=== PATIENT | male | born 1990 | race Caucasian/White ===

== ENCOUNTER 2021-09-26 18:20 | Emergency (ER) | payer SELFPAY ==
[~2021-09-26] VITALS: Ht 72 cm; Wt 99.8 kg
--- NOTE | 2021-09-26 19:44 | Diagnostic Imaging Report ---
EXAMINATION: Left fingers 2 or more views. HISTORY: Left thumb laceration. COMPARISON: None available. FINDINGS: Alignment is normal. No fracture is seen. No radiopaque foreign body is present. Joint spaces are normal. IMPRESSION: No fracture or radiopaque foreign body. Dictated by: Dictated on workstation # [id number]
--- NOTE | 2021-09-26 19:53 | ED Upper Extremity ---
General Chief Complaint: Laceration Stated Complaint: LEFT THUMB LAC Nursing Triage Note: Pt arrives via POV from home with c/o left thumb laceration; onset one hour ago. Pt reports cutting his thumb on a new band saw blade. Pt reports last tetanus <1 year ago. Source: patient Exam Limitations: no limitations History of Present Illness Date Seen by Provider: Sep 26, 2021 Time Seen by Provider: 19:29 Initial Comments Is a well-appearing 31-year-old male who presented to the ER with complaints of laceration to his left thumb that occurred approximate 1 hour prior to arrival. States that he was using his new band saw when he accidentally slipped and cut his finger. His last tetanus was updated a year ago. Physical Exam Vital Signs Vital Signs - First Documented 09/26/21 19:16 Resp 18 Pulse Ox 98 O2 Delivery Room Air Capillary Refill : Height, Weight, BMI Height: '" Weight: lbs. oz. kg; 192.00 BMI Method: Progress/Results/Core Measures Results/Orders My Orders Orders - ANANTH PAULSON APRN Finger(S) (09/26/21 19:17) Vital Signs/I&O 09/26/21 19:16 Resp 18 B/P (MAP) Pulse Ox 98 O2 Delivery Room Air Departure Impression Primary Impression: Laceration of thumb Disposition: HOME, SELF-CARE Condition: Improved Departure-Patient Inst. Decision time for Depature: 19:44 Referrals: NO,LOCAL PHYSICIAN (PCP/Family) Primary Care Physician Patient Instructions: Laceration Repair Add. Discharge Instructions: Plan: 1. Wash daily with mild soap and water. Pat dry. Place yellow gauze over laceration and dry gauze. 2. Do not soak or swim with laceration. 3. Monitor for signs of infection: redness, drainage, swelling, fever. Return or follow up with your doctor for antibiotics if they develop. 4. Return for any new, concerning, or worsening symptoms. All discharge instructions reviewed with patient and/or family. Voiced understanding. ANANTH PAULSON APRN Sep 26, 2021 19:53
[2021-09-26 20:11] VITALS: BP 131/89
== END 2021-09-26 20:13 | disposition home or self-care (01) ==
LOC: EDUNIT# 18:20 → ER 18:24
DX: S61.012A Laceration without foreign body of left thumb without damage to nail, initial encounter (principal); W26.8XXA Contact with other sharp object(s), not elsewhere classified, initial encounter
CPT/HCPCS: 73140